=== PATIENT | male | born 1960 | race Caucasian/White ===

== ENCOUNTER 2024-05-16 01:31 | Observation (INO) | payer BC, SELFPAY ==
[2024-05-15 18:50] VITALS: BP 128/76
[2024-05-15 19:13] LABS: Hematocrit 45.2 % (39.0-52.0); Hemoglobin 15.3 g/dL (13.0-18.0); Mean Corp Hgb Conc. 33.8 g/dL (33.0-37.0); Mean Corpuscular Hgb 29.9 pg (27.0-31.0); Mean Corpuscular Volume 88.3 fL (80.0-94.0); Red Blood Cell Count 5.12 10^6/uL (4.70-6.10); Red Cell Dist. Width 15.3 % (11.5-14.5); White Blood Cell Count 10.9 10^3/uL (4.8-10.8)
[2024-05-15 19:21] LABS: % Basophils 0.2 % (0-2); % Eosinophils 0.2 % (0-6); % Immature Granulocytes 0.5 % (0-0.5); % Lymphocytes 2.9 % (20.5-51.1); % Monocytes 8.8 % (1.7-9.3); % Neutrophils 87.4 % (42.2-75.2); Absolute Immature Granulocytes 0.1 10^3/uL (0-0.05); Absolute Lymphocytes 0.3 10^3/uL (1.2-3.4); Absolute Neutrophils 9.5 10^3/uL (1.4-6.5); Mean Platelet Volume 10.9 fL (7.4-10.4); Nucleated Red Blood Cells % 0 % (-); Platelet Count 64 10^3/uL (130-400)
[2024-05-15 19:43] LABS: ALT (SGPT) 43 U/L (0-50); AST (SGOT) 50 U/L (17-59); Albumin 4.3 g/dl (3.5-5.0); Alkaline Phosphatase 122 U/L (38-126); Blood Urea Nitrogen 11 mg/dl (9-20); Calcium 9.3 mg/dl (8.4-10.2); Carbon Dioxide 26 mmol/L (22-30); Chloride 101 mmol/L (98-107); Glucose 196 mg/dl (70-99); Lipase 72 U/L (23-300); Potassium 4.1 mmol/L (3.5-5.1); Sodium 138 mmol/L (135-145); Total Bilirubin 2.9 mg/dl (0.2-1.3); Total Protein 7.8 g/dl (6.3-8.2); eGFR > 60.00
[2024-05-15 21:34] VITALS: BMI 24.3
[2024-05-15 21:40] VITALS: BP 121/68
[2024-05-15] MEDS: NSS 1000 IV (21:48)
[2024-05-15] MEDS: ZOFRAN 4 MG IV (21:49)
[2024-05-15] MEDS: DILAUDID 1 MG IV (21:50)
--- NOTE | 2024-05-15 22:01 | ED.GENMED ---
History of Present Illness
General
Chief Complaint: Abdominal Symptoms
Source: patient, records and spouse
Exam Limitations: none
Time Seen by Provider: 05/15/24 21:17
Nursing documentation reviewed up to this point in time: agreed with
History of Present Illness
History of Present Illness:
63-year-old male type II diabetic hypertensive no prior abdominal surgeries presents with abdominal pain nausea vomiting, fairly acute onset around 1230, no prior episodes, no dysuria frequency no bloody stools, patient is a former alcoholic, has
been in recovery for 11 years he goes to , no relapses
Past History
Past History
ED Past Medical History: HTN and NIDDM
ED Past Surgical History: Orthopedic; Negative Appendectomy, Bowel resection or Cholecystectomy
Social History
Tobacco: Non-smoker
Alcohol: None
Drug: None
Personal:
Living: with family
Employment: Employed
Review of Systems
Review of Systems
All Other Systems: Not applicable
Constitutional: Reports fatigue
ABD/GI: Reports abdominal pain, nausea and vomiting
: Reports no symptoms
Musculoskeletal: Reports no symptoms
Skin: Reports no symptoms
Phy Exam
Physical Exam
Physical Exam:
Physical Exam
General: 63 male looks uncomfortable
Neck: No jaundice
Heart: s1/s2 regular rate and rhythm, no murmur. equal radial pulses.
Lungs: no acute respiratory distress. clear bilaterally
Abdomen: Tender in the right upper greater than right lower abdomen
Neuro: alert and oriented. no focal neurological deficits
Skin: no rash
Psychiatric: well kept. interactive and cooperative
Extremities: no edema.
Course
Orders/Labs/Results
Orders:
Orders
05/15/24 19:00
Complete Blood Count/With Diff Urgent
Comprehensive Metabolic Panel Urgent
Lipase Urgent
05/15/24 21:24
CT Abd/Pel (IV only)-[facility] only Urgent
Comment:
Reason For Exam: abd pain
0.9% Sodium Chloride 1000 ml [Nss] 1,000 ml IV BOLUS
HYDROmorphone [Dilaudid] 1 mg IV NOW STA
Ondansetron Injectable [Zofran] 4 mg IV NOW STA
05/15/24 21:25
Electrocardiogram (*1) Urgent
Reason for Study: Abdominal Pain
EKG- Treatment ONCE
05/15/24 21:40
US Abdomen Complete/Upper Urgent
Comment:
Reason For Exam: pain
05/15/24 21:55
Urinalysis Reflex To Culture Urgent
Date Specimen was Collected: 05/15/24
Time Specimen was Collected: 21:54
Abnormal Lab Results
05/15/24 05/15/24
19:00 21:55
WBC 10.9 H 10^3/uL
(4.8-10.8)
RDW 15.3 H %
(11.5-14.5)
Plt Count 64 L 10^3/uL
(130-400)
MPV 10.9 H fL
(7.4-10.4)
Abs Immat Gran (auto) 0.1 H 10^3/uL
(0-0.05)
Absolute Neuts (auto) 9.5 H 10^3/uL
(1.4-6.5)
Absolute Lymphs (auto) 0.3 L 10^3/uL
(1.2-3.4)
Absolute Monos (auto) 1.0 H 10^3/uL
(0.1-0.6)
Neutrophils % 87.4 H %
(42.2-75.2)
Lymphocytes % 2.9 L %
(20.5-51.1)
Creatinine 0.5 L mg/dL
(0.7-1.3)
Glucose 196 H mg/dl
(70-99)
Total Bilirubin 2.9 H mg/dl
(0.2-1.3)
Urine Ketones 3+ A
(Negative)
Urine Glucose 4+ A
(Negative)
05/15/24 19:00
05/15/24 19:00
Vital Signs
Initial and Last Documented VS:
Initial Vital Signs
Temp Pulse Resp BP Pulse Ox
98.9 F 119 18 128/76 96
05/15/24 18:50 05/15/24 18:50 05/15/24 18:50 05/15/24 18:50 05/15/24 18:50
Last Documented Vital Signs
Temp Pulse Resp BP Pulse Ox
99.3 F 108 16 113/63 94
05/15/24 23:10 05/15/24 23:10 05/15/24 23:10 05/15/24 23:10 05/15/24 23:10
MDM/Problems Addressed
Differential Diagnosis Includes:
Biliary colic pancreatitis appendicitis colitis GLP side effect
MDM/Problems Addressed:
Abdominal pain
Chronic conditions affecting care: DM and HTN
Acute Exacerbation and/or Progression of Chronic Illness: DM and HTN
*Radiology
Radiology exam reviewed: preliminary read by ED provider
*Pulse Oximetry
Patient hypoxic: no
*EKG
Interpreted by ED Provider?: Yes
Interpretation: normal
Comparison EKG: no comparison EKG present
Heart Rate: 78
Rate: normal
Rhythm: sinus
Interval: normal interval
*Fiber Technologist Interpretation
Rate: normal
Interpretation: normal
Heart Rate: 78
Rhythm: sinus
*Critical Care Note
Total Time (30-74mins, 75-104mins- exclusive of procedures): Not Applicable
Update Note
Update Note:
Update CT report noted bili noted, reviewed with patient states his bili has been up previously, had a full workup years ago when he stopped drinking, has been on Ozempic for several years, still have a fair amount of pain she is never had before at
this point I think is prudent admitted to the hospital
ED Attending Note
-
Portions of this chart may have been created with voice recognition software.� Occasional wrong word or��sound alike� substitutions may have occurred due to the inherent limitations of voice recognition software.
Discharge Plan
Departure
Prescriptions:
No Action
cetirizine 10 MG tablet
10 mg PO DAILY
metformin 1,000 MG tablet
1,000 mg PO BID
lisinopril 5 MG tablet
5 mg PO QPM
gabapentin 100 MG capsule
200 - 300 mg PO HS
Jardiance 10 MG tablet
10 mg PO QPM
Aleve PM 1 EACH tablet
1 ea PO PRN PRN (Reason: sleep)
multivitamin Tablet
1 tab PO DAILY
Ozempic 2 mg/dose (8 mg/3 mL) Pen Injector
2 mg SC QWEEK
Referrals:
Ela Chow DO [Family Provider] -
Interventions
Interventions:
*Risk Screen - Suicide Last Done: 05/15/24 18:50
*General Assessment Last Done: 05/15/24 18:50
*Neglect/Abuse Screening Last Done: 05/15/24 18:50
*ED COVID-19 Vaccine History Last Done: 05/15/24 21:34
GO-Brehdx-Maebfgfoup Assessment Last Done: 05/15/24 21:55
Discharge Date and Time
Print Language: LATVIAN
[2024-05-15 22:10] LABS: Urine Albumin Negative (Neg - Trace); Urine Bilirubin Negative (Negative); Urine Character Clear (Clear); Urine Color Yellow; Urine Glucose 4+ (Negative); Urine Ketone 3+ (Negative); Urine Leukocyte Negative (Negative); Urine Nitrite Negative (Negative); Urine Occult Blood Negative (Negative); Urine Specific Gravity 1.015 (<1.030); Urine Urobilinogen Negative (Neg - 1+)
--- NOTE | 2024-05-15 22:22 | EDRN ---
Pt developed lower abdominal pain radiating to his middle back around 1230. Pain was intense, unrelieved by movement, sharp in nature. Pt did not take anything for pain. Pt had nausea and vomited x 4. Pt felt chilled, no fever noted. BM earlier
today was normal, appetite normal. Pt denies cp, sob, constipation, diarrhea, urinary symptoms, weakness, dizziness. Pain improved prior to dilaudid IV. No nausea prior to zofran administration.
[2024-05-15 23:10] VITALS: BP 113/63
[2024-05-16] VITALS: BP 108/61
--- NOTE | 2024-05-16 01:01 | HPS.HSE ---
Family Physician
-
Family Physician: Ela Chow
Chief Complaint
-
Abdominal pain
History of Present Illness
This is a 63-year-old who has past medical history of remote alcohol use status post quitting 11 years ago, diabetes on metformin and Jardiance as well as Ozempic, hyperlipidemia, hypertension, sleep apnea not on CPAP who presents to the emergency
department with acute episode of bilateral lower quadrant abdominal pain.
Patient reported being in usual state of health up until this morning when after dinner while he was at work he developed bilateral lower quadrant abdominal pain. He reports he also had simultaneous back pain. He denies any radiation into the
groin. Denies any abdominal bruising or swelling. He denied any radiation into the chest. He reports associated nausea and vomiting that was nonbloody and nonbilious. No longer vomiting at this time. He denies any diarrhea. He denies any
constipation. He felt subjectively febrile at home but did not measure his temperature. Denies chills. He denies any rash. He denies any melena or hematochezia. No association with eating or bms.
Patient denies any new medications. He denies any alcohol use. He denies history of gallstones. He denies dysuria, hematuria frequency or urgency. He denies any scrotal swelling. He denies any history of abdominal hernia
In the emergency department he was afebrile, temp was 99.3, normotensive with a blood pressure of 108/60 on and a pulse of 103. CBC shows a white count of 10.9, platelet count was down to 64 hemoglobin was normal. Electrolytes were completely
normal. BUN/creatinine were normal. Glucose was 190. UA was unremarkable. LFTs notable for a total bilirubin of 2.9 which is up from 1.56 months ago. Lipase was normal. AST ALT and alk phos were normal.
He had abdominal imaging including ultrasound and CT scan.
The CT scan showed cirrhotic liver, splenomegaly with multiple varices, no ascites, gallbladder was mildly distended with no evidence of stones, small rim of decreased density between the superior gallbladder and the liver suggesting mild
gallbladder wall thickening, only associated with cirrhosis. No ductal dilatation. Slight prominence of fluid-filled small bowel loops in the mid abdomen noted.
A ultrasound of the liver shows gallbladder contains sludge and possibly tiny stones. No evidence of gallbladder wall thickening or pericholecystic edema and negative Hilliard sign.
Medical History
Past Medical History
Past Medical History: Reports HTN, Hypercholesterolemia and NIDDM
Past Surgical History: Reports Orthopedic
Social History
Tobacco: Non-smoker
Alcohol: Former (Quit 11 years ago)
Drug: None
Personal:
Living: With Family
Employment: Employed
Family History
Family History: Not pertinent
Allergies / Home Medications
Allergies reflects when Allergies were last updated in [facility].
Home Medications with original date entered in [facility]
Allergy/Medication List:
Allergies
Allergy/AdvReac Type Severity Reaction Status Date / Time
No Known Allergies Allergy Verified 05/15/24 21:35
Home Medications
cetirizine 10 mg tablet 10 mg PO DAILY 12/27/20
empagliflozin 10 mg tablet (Jardiance) 10 mg PO HS 12/27/20
gabapentin 100 mg capsule 200 mg PO HS 12/27/20
lisinopril 5 mg tablet 5 mg PO HS 12/27/20
metformin 1,000 mg tablet 1,000 mg PO BID 12/27/20
Prevagen 1 cap PO DAILY 05/15/24
atorvastatin 20 mg tablet 20 mg PO HS 05/15/24
gabapentin 100 mg capsule 100 mg PO HSPRN PRN extra cap if 200mg ineffective 05/15/24
naproxen 220 mg-diphenhydramine 25 mg tablet (Aleve PM) 1 tab PO HSPRN PRN sleep 05/15/24
semaglutide 2 mg/dose (8 mg/3 mL) subcutaneous pen injector (Ozempic) 2 mg SC MO 05/15/24
therapeutic multivitamin 1 tab PO DAILY 05/15/24
Review of Systems
-
History Source: Patient
Constitutional: Reports No Symptoms
EENT: Reports No Symptoms
Respiratory: Reports No Symptoms
Cardiac: Reports No Symptoms
Abdomen/GI: Reports Abdominal Pain, Nausea and Vomiting
: Reports No Symptoms
Musculoskeletal: Reports No Symptoms
Skin: Reports No Symptoms
Neurological: Reports No Symptoms
Endocrine: Reports No Symptoms
Hematologic/Lymphatic: Reports No Symptoms
Psych: Reports No Symptoms
Physical Exam
Vital Signs
Vital Signs
Temp Pulse Resp BP Pulse Ox
99.3 F 105 16 108/61 95
05/15/24 23:10 05/16/24 00:00 05/15/24 23:10 05/16/24 00:00 05/16/24 00:00
Physical Exam
General: Well Developed, Well Nourished, No Apparent Distress and Comfortable
HEENT: NormoCephalic, Anicteric, Moist mucous membranes and Atraumatic
Respiratory: Clear
Cardiac: S1/S2 and Regular Rhythm
Breast: Deferred by me
GI: Soft, Non Tender, Non Distended and Normal Bowel Sounds (slight decrease in b/s on the left lower quadrant)
Rectal: Deferred by Provider
Genito-urinary: Clear Urine and No costovertebral tender
Musculoskeletal: No Clubbing, No Cyanosis and No Edema
Skin: Warm; No Rash
Neuro: AO x 3 and Nonfocal/grossly intact
Hematologic/Lymphatic: No Lymphadenopathy
Psych: Calm
Laboratory Results
-
05/15/24 19:00
05/15/24 19:00
Laboratory Results
Total Bilirubin 2.9 mg/dl (0.2-1.3) H 05/15/24 19:00
AST 50 U/L (17-59) 05/15/24 19:00
ALT 43 U/L (0-50) 05/15/24 19:00
Alkaline Phosphatase 122 U/L (38-126) 05/15/24 19:00
Lipase 72 U/L (23-300) 05/15/24 19:00
Data Reviewed
-
CT Scan: Report Reviewed by me
Ultrasound: Report Reviewed by me
Lab Data: Labs Reviewed by me
Old Records: Reviewed
Impression/Plan
-
IMPRESSION:
63-year-old with a history of prior alcohol dependence, cirrhosis coming in with bilateral lower quadrant abdominal pain, in with bilateral lower quadrant abdominal pain that started acutely about 12 hours ago. Workup negative in the emergency
department with CT scanning showing cirrhosis and some varices but no evidence of biliary obstruction, gallstones, acute cholecystitis, pancreatitis. Patient has no evidence of a pyelonephritis or cystitis. There is no evidence of appendicitis.
There is no evidence of diverticulitis. There is possibility of ileus on the CT scan but no evidence of small bowel obstruction. Suspect possible ileus that may require follow-up
Patient is passing gas and has had normal bowel movements.
PLAN:
1. Abdominal pain - Uncertain etiology, possible early development of ileus but no signs of peritonitis on labs, exam or CT scan.
- admit to med/surg
- diet as tolerated
- pain control for now
- s/p 1 L NS
- serial examinations to eval for developing bowel obstruction
- consider GI consultation for unexplained intractable abdominal pain if persistent in am
2. Elevated Isolated T bili
- check direct bilirubin levels and ggt
- trend for now
- denies etoh, tylenol
- no evidence of biliary obstruction on CT, stable cirrhosis noted
- tiny gallstones without acute cholecystitis
3. DM II
- continue jardiance for now
- hold metformin x 48 hours
- sliding scale insulin
4. thrombocytopenia - Isolated thrombocytopenia. Possibly 2/2 cirrhosis. No active bleeding
- monitor for now and f/u with pmd for further w/u as needed
DVT PPX - SCDs
Code status - Full Code
[2024-05-16 01:43] VITALS: BP 110/70
[2024-05-16 02:49] VITALS: BP 129/72; BMI 24.5
[2024-05-16 02:51] LABS: Glucose - Point of Care 163 mg/dl (70-99)
[2024-05-16] MEDS: DILAUDID 0.5 MG IV (03:14)
[2024-05-16 07:10] LABS: Glucose - Point of Care 137 mg/dl (70-99)
[2024-05-16 07:15] VITALS: BP 120/63
[2024-05-16 07:24] LABS: ALT (SGPT) 34 U/L (0-50); AST (SGOT) 36 U/L (17-59); Albumin 3.3 g/dl (3.5-5.0); Alkaline Phosphatase 85 U/L (38-126); Blood Urea Nitrogen 18 mg/dl (9-20); Carbon Dioxide 26 mmol/L (22-30); Chloride 102 mmol/L (98-107); Direct Bilirubin 0.5 mg/dl (0.0-0.4); Estimated Creatinine Clearance > 125 ml/min; GGTP 93 U/L (15-73); Glucose 148 mg/dl (70-99); Potassium 3.8 mmol/L (3.5-5.1); Sodium 136 mmol/L (135-145); Total Bilirubin 2.4 mg/dl (0.2-1.3); Total Protein 6.2 g/dl (6.3-8.2); eGFR > 60.00
[2024-05-16 07:33] LABS: Hematocrit 38.2 % (39.0-52.0); Hemoglobin 13.1 g/dL (13.0-18.0); Mean Corp Hgb Conc. 34.3 g/dL (33.0-37.0); Mean Corpuscular Hgb 30.3 pg (27.0-31.0); Mean Corpuscular Volume 88.2 fL (80.0-94.0); Mean Platelet Volume 12.3 fL (7.4-10.4); Platelet Count 64 10^3/uL (130-400); Red Blood Cell Count 4.33 10^6/uL (4.70-6.10); Red Cell Dist. Width 15.6 % (11.5-14.5); White Blood Cell Count 6.6 10^3/uL (4.8-10.8)
[2024-05-16] MEDS: NOVOLOG FLEXPEN-LOW RESISTANCE SC (09:23)
[2024-05-16] MEDS: ZYRTEC 10 MG PO (09:23)
[2024-05-16] MEDS: TYLENOL 650 MG PO (09:25)
--- NOTE | 2024-05-16 09:56 | CON.GI ---
Addendum entered and electronically signed by Waldemar Peguero MD 05/16/24 13:09:
I saw and examined the patient.
The PA's note was reviewed and I agree with the note.
Comment:
63 year old male with h/o prior ETOH/substance abuse (quit 11 years ago), HTN, hypercholesterolemia, DM (last hbgA1C 9 months ago 5 range) who p/w lower abdominal/back pain and associated vomiting.
Impression / Rec:
1. Abdominal pain/vomiting - has been on GLP-1 agonist (ozempic, on it for several years) and tolerated well. His pain was sudden onset. Vomited 4-5 times with pain. Reportedly had viral infection several weeks ago. Has alcohol induced
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 Admits to NSAID use but rare (few times per month). LFT relatively normal with mildly elevated bili (2.9) which is mostly indirect (direct 0.5). Normal lipase. Slight elevation in GGT. CRP mildly
elevated at 21.8. CT showed non-diagnostic except coarsening echotexture of liver suggestive of cirrhosis. Symptoms may be from gastroenteritis. Tolerating diet and reports pain has improved. Can monitor but anticipate discharge soon if his
symptoms continue to improve/tolerates diet. Will need OP f/u for his cirrhosis.
Original Note:
Consultation
-
Date/Time Consultation Requested: 05/16/24 0230
Date/Time Consultation Performed: 05/16/24 0950
Requesting Provider: Indu Coyle MD
Performing Provider: DULCE MARIA Pardo, Waldemar Peguero MD
Reason for Consultation: abdominal pain, vomiting, abnormal imaging
Medical History
Chief Complaint / HPI
Chief Complaint: nausea, vomiting, abdominal pain
History of Present Illness:
Pt is a 63yo with hx prior ETOH/substance abuse (sober 11 years), HTN, hypercholesterolemia, NIDDM on Jardiance, Ozempic for several years with no change in meds (last hbgA1C 9 months ago 5 range) with sudden onset of lower abdominal/back pain with
vomiting prior to admission. Pt admits to vomiting 4-5 times initially food then bile. Pt also admits to mild loose stool after admission with improving pain. He does admit to hx viral infection several weeks ago also not feeling well. On
admission noted with hbg 13.1, platelets 64,000, bili 2.4, d jakub 0.5, AST 36, ALT 34, Alk phos 85, albumin 3.3, CRP 21.8. Imaging on admission with CT completed with changes of cirrhosis, splenomegaly, multiple varices no ascites, GB mild
distention with stones, mild GBWT with cirrhosis, no biliary dilatation, prominent SB loops mid abdomen with ileus. US with GB sludge and stones, no wall thickening neg hilliard sign, no duct dilation, diffuse coarsening echotexture of liver suggest
Heptocellular disease, change of cirrhosis, SM, no acites, pancreas not well visualized.
At this time patient states some improvement with tolerating diet this am. He denies any chronic diarrhea, constipation or rectal bleeding. Occasional NSAID use. No prior EGD. Last colonoscopy 10 + years ago with hx polyps. NO hx GI
bleed, HE or ascites.
Past Medical History
Past Medical History: HTN, Hypercholesterolemia, NIDDM and Other (prior ETOH/substance abuse, sleep apnea, cirrhosis, splenomegaly, colon polyps, gallstones )
Past Surgical History: Orthopedic
Social History
Tobacco: Former Smoker
Alcohol: Former
Drug: Former User (percocet and marijuana )
Personal:
Living: With Family
Employment: Employed
Family History
Family History: Other (father with colon CA, no family hx liver issues, sister and mother with nina )
Allergies / Home Medications
Allergy/AdvReac Type Severity Reaction Status Date / Time
No Known Allergies Allergy Verified 05/15/24 21:35
�Medication �Instructions �Recorded
cetirizine 10 mg tablet 10 mg PO DAILY 12/27/20
empagliflozin 10 mg tablet 10 mg PO HS 12/27/20
(Jardiance)
gabapentin 100 mg capsule 200 mg PO HS 12/27/20
lisinopril 5 mg tablet 5 mg PO HS 12/27/20
metformin 1,000 mg tablet 1,000 mg PO BID 12/27/20
Prevagen 1 cap PO DAILY 05/15/24
atorvastatin 20 mg tablet 20 mg PO HS 05/15/24
gabapentin 100 mg capsule 100 mg PO HSPRN PRN extra cap if 05/15/24
200mg ineffective
naproxen 220 mg-diphenhydramine 25 1 tab PO HSPRN PRN sleep 05/15/24
mg tablet (Aleve PM)
semaglutide 2 mg/dose (8 mg/3 mL) 2 mg SC MO 05/15/24
subcutaneous pen injector (Ozempic)
therapeutic multivitamin 1 tab PO DAILY 05/15/24
Review of Systems
-
History Source: Patient
Constitutional: Reports Weight Loss (50 lbs over several years )
EENT: Reports No Symptoms
Respiratory: Reports No Symptoms
Cardiac: Reports No Symptoms
Abdomen/GI: Reports Abdominal Pain, Nausea, Vomiting and Diarrhea
: Reports No Symptoms
Musculoskeletal: Reports Other (back pain)
Skin: Reports No Symptoms
Neurological: Reports Weakness
Endocrine: Reports No Symptoms
Hematologic/Lymphatic: Reports No Symptoms
Vital Signs
Temp Pulse Resp BP Pulse Ox
98 F 93 14 120/63 97
05/16/24 07:15 05/16/24 07:15 05/16/24 07:15 05/16/24 07:15 05/16/24 07:15
Physical Exam
Exam
General: Well Developed, Well Nourished and No Apparent Distress
HEENT: Normocephalic and Anicteric
Respiratory: Clear
Cardiac: Regular Rhythm
GI: Soft, Non Distended and Tender (minimal lower tenderness )
Musculoskeletal: No Clubbing and No Cyanosis
Skin: Warm and Dry
Neuro: Awake, Alert and AO x 3
Psych: Calm
Results
WBC 6.6 10^3/uL (4.8-10.8) 05/16/24 06:42
Hgb 13.1 g/dL (13.0-18.0) 05/16/24 06:42
Hct 38.2 % (39.0-52.0) L 05/16/24 06:42
MCV 88.2 fL (80.0-94.0) 05/16/24 06:42
Plt Count 64 10^3/uL (130-400) L 05/16/24 06:42
Absolute Neuts (auto) 9.5 10^3/uL (1.4-6.5) H 05/15/24 19:00
Sodium 136 mmol/L (135-145) 05/16/24 06:42
Potassium 3.8 mmol/L (3.5-5.1) 05/16/24 06:42
Chloride 102 mmol/L (98-107) 05/16/24 06:42
Carbon Dioxide 26 mmol/L (22-30) 05/16/24 06:42
BUN 18 mg/dl (9-20) 05/16/24 06:42
Creatinine 0.5 mg/dL (0.7-1.3) L 05/16/24 06:42
Calcium 8.0 mg/dl (8.4-10.2) L 05/16/24 06:42
Total Bilirubin 2.4 mg/dl (0.2-1.3) H 05/16/24 06:42
AST 36 U/L (17-59) 05/16/24 06:42
ALT 34 U/L (0-50) 05/16/24 06:42
Alkaline Phosphatase 85 U/L (38-126) 05/16/24 06:42
Lipase 72 U/L (23-300) 05/15/24 19:00
Diagnostic Image Results:
05/15/24 CT Abd/Pel (IV only)-DH only
IMPRESSION: Cirrhotic liver. Splenomegaly with multiple varices. No significant ascites.
Gallbladder is mildly distended with no evidence for calcified gallstones. Small rim of decreased density between the superior gallbladder and the liver, suggesting mild gallbladder wall thickening, commonly seen in association with cirrhosis.
Please correlate with any clinical symptoms that would suggest acute cholecystitis.
No evidence for biliary ductal dilation.
Splenomegaly.
Slight prominence of fluid-filled small bowel loops in the midabdomen, and is likely on the basis of a mild focal ileus.
05/15/24 US Abdomen Complete/Upper
Gallbladder contains sludge and possibly tiny stones. No evidence for gallbladder wall thickening or pericholecystic edema. Negative sonographic Hilliard's sign.
No evidence for biliary ductal dilation.
Diffusely coarsened echotexture of the liver suggesting diffuse hepatocellular disease. Liver contour appears nodular, and findings would be suggestive of cirrhosis.
Splenomegaly is present.
No gross evidence for ascites.
Pancreas is not optimally visualized, with no convincing evidence for a focal abnormality.
Prior GI Procedures:
EGD: none
Colonoscopy: last 10 + years ago [place] with polyps
Assessment / Plan
-
Pt is a 63yo with hx prior ETOH/substance abuse (sober 11 years), HTN, hypercholesterolemia, NIDDM on Jardiance, Ozempic for several years with no change in meds (last hbgA1C 9 months ago 5 range) with sudden onset of lower abdominal/back pain with
vomiting prior to admission. Pt admits to vomiting 4-5 times initially food then bile. Pt also admits to mild loose stool after admission with improving pain. He does admit to hx viral infection several weeks ago also not feeling well. On
admission noted with hbg 13.1, platelets 64,000, bili 2.4, d jakub 0.5, AST 36, ALT 34, Alk phos 85, albumin 3.3, CRP 21.8. Imaging on admission with CT completed with changes of cirrhosis, splenomegaly, multiple varices no ascites, GB mild
distention with stones, mild GBWT with cirrhosis, no biliary dilatation, prominent SB loops mid abdomen with ileus. US with GB sludge and stones, no wall thickening neg hilliard sign, no duct dilation, diffuse coarsening echotexture of liver suggest
Hepatocellular disease, change of cirrhosis, SM, no ascites, pancreas not well visualized.
-sudden of lower abdominal pain, nausea, vomiting then loose stool after admission
-CT with prominent SB loops and ileus picture
-CT with mild GB distention, cholelithiasis with follow up US no GBWT
-CT with change of cirrhosis with compensated disease
-elevated bili with minimal D jakub elevation
-thrombocytopenia
-hypoalbuminemia
-splenomegaly
-increased CRP
-occasional NSAID use
other med problems:
-hx colon polyps
-family hx colon CA
-prior ETOH/substance abuse sobe 11 years
-HTN
-hypercholesterolemia
-NIDDM on Jardiance, Ozempic for several years
PLAN:
Etiology of symptoms with pain, vomiting, mild loose stool repeat to underlying gastroenteritis such as norovirus with ileus/SB prominence on CT vs Ozempic related - but has been on longstanding without dose change, gastroparesis, vs other
pt now improving and tolerating diet
add low residue to diet
add norovirus and hbg A1C
incidental noted cirrhosis with splenomegaly, hypoalbuminemia, thrombocytopenia - likely chronic issue but pt never formally told about cirrhosis without GI or hepatology follow
review with patient diagnosis and will need follow up after discharge then every 6 month follow up
will need OP EGD and also due for colonoscopy
add INR to calculate MELD
If continued to tolerate diet consider discharge with OP follow up for cirrhosis, colon, etc
pt should return of recurrence of symptoms and consider SB imaging with vomiting persists
NSAID avoidance, continued ETOH and Drug abstinence
-
-
-
Thank you for consultation and allowing me to participate in the patient's care. Please call the promotions executive GI physician during the after hours with any questions or concerns.
[2024-05-16] MEDS: LIDOCAINE 4% PATCH 1 PATCH TOPICAL (10:20)
[2024-05-16 11:47] LABS: Glucose - Point of Care 176 mg/dl (70-99)
[2024-05-16 11:51] LABS: INR 1.33; PT 16.8 Sec (11.4-14.6)
[2024-05-16] MEDS: NOVOLOG FLEXPEN-LOW RESISTANCE 1 UNITS SC (11:54)
[2024-05-16] MEDS: ZOFRAN 4 MG IV (11:56)
[2024-05-16 12:00] VITALS: BP 118/64
[2024-05-16 12:46] LABS: Glycohemoglobin (HgbA1c) 6.9 % (4.0-5.6)
--- NOTE | 2024-05-16 14:10 | W.DCSUMMARY ---
Discharge Summary
Discharge Data
Date of Admission: 05/16/24
Date of Discharge: 05/16/24
-
Pending Results: No
Hospital Course
Discharge diagnosis:
Abdominal pain and vomiting suspicious for gastroenteritis
Mid lower back pain
Cirrhosis of the liver
Elevated bilirubin
Thrombocytopenia
Hypoalbuminemia
Splenomegaly
Cholelithiasis
Diabetes on Ozempic
Hyperlipidemia
Obstructive sleep apnea
Hypertension
Consults: GI
Abdominal ultrasound:
Gallbladder contains sludge and possibly tiny stones. No evidence for gallbladder wall thickening or pericholecystic edema. Negative sonographic Hilliard's sign.
No evidence for biliary ductal dilation.
Diffusely coarsened echotexture of the liver suggesting diffuse hepatocellular disease. Liver contour appears nodular, and findings would be suggestive of cirrhosis.
Splenomegaly is present.
No gross evidence for ascites.
CT abdomen and pelvis:
Cirrhotic liver. Splenomegaly with multiple varices. No significant ascites.
Gallbladder is mildly distended with no evidence for calcified gallstones. Small rim of decreased density between the superior gallbladder and the liver, suggesting mild gallbladder wall thickening, commonly seen in association with cirrhosis.
Please correlate with any clinical symptoms that would suggest acute cholecystitis.
No evidence for biliary ductal dilation.
Splenomegaly.
Slight prominence of fluid-filled small bowel loops in the midabdomen, and is likely on the basis of a mild focal ileus.
Hospital course:
63-year-old male with a past medical history of diabetes on Ozempic, hyperlipidemia, and remote history of alcohol use quitting 11 years ago presents with acute onset of abdominal pain and vomiting x 5. Patient was seen in conjunction with GI. GI
suspects gastroenteritis. They do not feel that Ozempic is causing his symptoms. Abdominal ultrasound shows cholelithiasis, negative for cholecystitis.
Patient had a CT of the abdomen and pelvis which showed cirrhotic liver with splenomegaly. He has a remote drinking history, he quit alcohol 11 years ago. GI recommends outpatient follow-up.
Patient complained of back pain, this was relieved with Tylenol and lidocaine patch.
He was able to tolerate a diet. His nausea and vomiting resolved. Abdominal pain improved. He is medically stable for discharge. He needs to follow-up with GI in the office, and his primary care doctor in 1 week.
Disposition: Home self-care
Discharge planning: Required 45 minutes
Discharge Plan
-
Patient Disposition: Home (Routine Discharge)
Discharge Diagnosis/Procedures: Abdominal pain, vomiting, suspected gastroenteritis, back pain, cirrhosis of the liver, gallstones
Condition: Good
Diet: Low Residue and Diabetic, Carb Controlled
Additional Diets: low residue x 2 weeks
Activity Restrictions/Additional Instructions:
You can take Tylenol/acetaminophen 650 mg 3 times a day as needed for your pain.
GI recommends avoiding all [id number] NSAID medications, such as naproxen, Aleve, Motrin, Advil, ibuprofen.
These medications can cause bleeding in your stomach, especially if you have cirrhosis.
Please follow-up with your primary care doctor in 1 week, and GI as directed.
Referrals:
Ela Chow DO [Family Provider] - in one week
Waldemar Peguero MD [Active] - (follow up for abdominal pain and to review for diagnosis of cirrhosis. Will need colonoscopy with hx polyp and family hx colon Ca and Endoscopy with cirrhosis. )
Additional Discharge Medication Instructions: AVOID all NSAID- Aleve, motrin, Ibuprofen etc with cirrhosis of liver , Can use Tylenol less then 2 gram daily as needed for pain
Prescriptions:
New
lidocaine 4 % Adhesive Patch,Medicated
1 patch topical DAILY Qty: 15 0RF
acetaminophen 325 mg tablet
650 mg PO TIDPRN PRN (Reason: fever or pain) Qty: 90 0RF
Continued
cetirizine 10 MG tablet
10 mg PO DAILY
metformin 1,000 MG tablet
1,000 mg PO BID
lisinopril 5 MG tablet
5 mg PO HS
gabapentin 100 MG capsule
200 mg PO HS
Jardiance 10 MG tablet
10 mg PO HS
Ozempic 2 mg/dose (8 mg/3 mL) Pen Injector
2 mg SC MO
atorvastatin 20 mg Tablet
20 mg PO HS
therapeutic multivitamin Tablet
1 tab PO DAILY
gabapentin 100 mg Capsule
100 mg PO HSPRN PRN (Reason: extra cap if 200mg ineffective)
Prevagen
1 cap PO DAILY
Discontinued
Aleve PM 220-25 mg Tablet
1 tab PO HSPRN PRN (Reason: sleep)
Discharge Orders:
Discharge Patient (As Directed); Ordered 05/16/24
Ordered By: Ludwig Bullard
Discharge Date and Time
Discharge Date/Time: 05/16/24 15:54
Print Language: ARABIC
--- NOTE | 2024-05-16 15:12 | CM ---
CM following re: discharge planning.
Reviewed pt's chart, met with pt and pt's spouse at bedside.
Pt is a 63 year old male, admitted with OBS status and primary dx of Abdominal pain. OBS status explained to the pt, pt expressed his understaging, OBS letter signed, placed on chart, pt has a copy.
Pt reports he lives with spouse 2SH, independent [employer].
Discharge order noted. Pt is aware, spouse to transport home.
No after care VN services indicated.
D/C plan: home no needs. Spouse to transport.
--- NOTE | 2024-05-16 15:49 | PTCARENOTE ---
Reviewed discharge instructions with patient and . Verbalizes understanding of all teaching. Denies questions at this time. Peripheral IV removed. Vital signs stable. Patient left via wheelchair with staff escort. at bedside and will
transport patient home.
[2024-05-18 12:44] LABS: 5' Nucleotidase Results 17 U/L (0-15)
== END 2024-05-16 15:54 | disposition home or self-care (01) ==
LOC: 4 EAST ACU 01:31
PROVIDERS: Emergency Medicine; Nurse Practitioner Adult Health; ADMITTING PHYSICIAN Internal Medicine; ATTENDING PHYSICIAN Family Medicine; CONSULT PHYSICIAN Internal Medicine Gastroenterology; EMERGENCY PHYSICIAN Emergency Medicine; FAMILY PHYSICIAN Family Medicine
DX: R11.2 Nausea with vomiting, unspecified (principal); R10.9 Unspecified abdominal pain; E11.9 Type 2 diabetes mellitus without complications; I10 Essential (primary) hypertension; F10.21 Alcohol dependence, in remission; E78.00 Pure hypercholesterolemia, unspecified; K70.30 Alcoholic cirrhosis of liver without ascites; E88.09 Other disorders of plasma-protein metabolism, not elsewhere classified; N28.1 Cyst of kidney, acquired; M51.369 Other intervertebral disc degeneration, lumbar region without mention of lumbar back pain or lower extremity pain; D69.6 Thrombocytopenia, unspecified; R00.0 Tachycardia, unspecified; K80.20 Calculus of gallbladder without cholecystitis without obstruction; M54.50 Low back pain, unspecified; Z86.0100 Personal history of colon polyps, unspecified; G47.33 Obstructive sleep apnea (adult) (pediatric); R16.1 Splenomegaly, not elsewhere classified; Z87.891 Personal history of nicotine dependence; Z79.84 Long term (current) use of oral hypoglycemic drugs; Z79.1 Long term (current) use of non-steroidal anti-inflammatories (NSAID); Z79.85 Long-term (current) use of injectable non-insulin antidiabetic drugs; Z80.0 Family history of malignant neoplasm of digestive organs
CPT/HCPCS: 74177; 76700; 80048; 80053; 80076; 81003; 82962; 82977; 83036; 83690; 83915; 85025; 85027; 85610; 86140; 93005; 96361; 96374; 96375; 99285; G0378; Q9967